=== PATIENT | male | born 1985 | race Two or more races ===

== ENCOUNTER 2024-08-03 09:17 | Emergency (ER) | payer OTHER ==
[~2024-08-03] VITALS: Ht 182.9 cm; Wt 84.8 kg
[2024-08-03 09:31] VITALS: BP 137/82; O2SAT 96
[2024-08-03] MEDS ORDERED: ONDANSETRON HCL 2 MG/ML VIAL ONE (09:53)
[2024-08-03] MEDS ORDERED: KETOROLAC TROMETHAMINE 60 MG VIAL IM ONE ×2 (09:53→10:00)
[2024-08-03] MEDS ORDERED: CEFAZOLIN SODIUM 1,000 MG VIAL ONE (09:54)
[2024-08-03] MEDS ORDERED: FAMOTIDINE/PF 20 MG/2 ML VIAL ONE (09:54)
[2024-08-03] MEDS ORDERED: FAMOtidine 10 MG/ML (4ML VIAL) IV ONE (10:00)
[2024-08-03] MEDS ORDERED: 0.9 % SODIUM CHLORIDE 1,000 ML IV ONE (10:00)
[2024-08-03] MEDS ORDERED: CEFAZOLIN SODIUM 1,000 MG VIAL IV ONE (10:00)
[2024-08-03] MEDS ORDERED: ONDANSETRON HCL 2 MG/ML VIAL IV ONE (10:00)
[2024-08-03 10:27] LABS: HEMATOCRIT 40.5 % (39.0-48.0); HEMOGLOBIN 14.3 g/dL (13-16.00); MEAN CELL VOLUME 90.1 fL (80.0-100.00); MEAN CORPUSCULAR HEMOGLOBIN 31.9 pg (27.00-32.0); MEAN CORPUSCULAR HGB CONC 35.4 g/dl (32.0-36.0); PLATELET COUNT 242 K/uL (150-450); RED BLOOD COUNT 4.49 M/uL (4.00-6.00); RED CELL DISTRIBUTION WIDTH 13.4 % (11.5-14.5)
[2024-08-03 11:18] LABS: INR 0.97; PARTIAL THROMBOPLASTIN TIME 30.8 SECONDS (22.0-34.0); PROTHROMBIN TIME 10.6 SECONDS (9.0-11.5)
[2024-08-03 11:23] LABS: ALBUMIN 3.8 gm/dL (3.4-5.0); BILIRUBIN TOTAL 0.94 mg/dL (0.3-1.2); CALCIUM 9.7 mg/dL (8.5-10.1); CREATININE SERUM 0.79 mg/dL (0.70-1.30); GFR 109.77; GLOBULINA 3.8 G/DL (2.4-3.5); POTASSIUM 3.7 mEq/L (3.5-5.1); TOTAL PROTEIN 7.6 gm/dL (6.4-8.2)
[2024-08-03 15:26] LABS: URINE APPEARANCE Clear; URINE BILIRRUBIN Negative (NEGATIVE); URINE BLOOD Negative; URINE COLOR Yellow; URINE GLUCOSE Negative (NEGATIVE); URINE KETONE Trace (NEGATIVE); URINE LEUKOCYTE Negative; URINE NITRATE Negative; URINE PROTEIN Negative (NEGATIVE)
[2024-08-03 15:27] LABS: URINE BACTERIA 39.1 uL (0.0-1933); URINE EPITHELIAL CELLS 2.9 uL (0.0-38.8); URINE RBC 3.8 uL (0.0-20.8); URINE WBC 5.6 uL (0.0-23.2)
[2024-08-03] MEDS ORDERED: PEPCID AC20 MG PO (15:28)
[2024-08-03] MEDS ORDERED: PROBIOTIC1 EAC2 PO (15:28)
[2024-08-03] MEDS ORDERED: CIPRO500 MG PO (15:28)
[2024-08-03] MEDS ORDERED: METRONIDAZOLE500 MG PO (15:28)
[2024-08-03] MEDS ORDERED: ZOFRAN8 MG PO (15:28)
== END 2024-08-03 16:36 | disposition home or self-care (01) ==
LOC: ER 09:19
PROVIDERS: General Practice
DX: R10.9 Unspecified abdominal pain (principal); K57.32 Diverticulitis of large intestine without perforation or abscess without bleeding; K36 Other appendicitis